=== PATIENT | female | born 1950 | race Caucasian/White ===

== ENCOUNTER → 2020-04-20 | Outpatient (CLI) | payer MEDICARE ==
[~2020-04-20] MED LIST: ALBUTEROL2.5 MG/0.1; CLARITIN5 MG; KEFLEX500 MG PO; LISINOPRIL-HCT1 EAC1 PO; MUCINEX DM TABL1 TA1; PREDNISONE 20 M20 M1; PREDNISONE 20 M20 M1 PO; SYMBICORT160 MCG/4. INH; VENTOLIN HFA 1818 GM INH; ZPAK
== END ==
LOC: M.RAD 14:45
PROVIDERS: ATTEND Family Medicine
DX: M81.0 Age-related osteoporosis without current pathological fracture (principal); Z78.0 Asymptomatic menopausal state

== ENCOUNTER 2020-11-01 11:05 | Inpatient (IN) | payer MEDICARE ==
[~2020-11-01] VITALS: Ht 162.6 cm; Wt 87.1 kg
[2020-11-01 11:12] VITALS: BP 178/86
[2020-11-01] MEDS ORDERED: ZYRTEC10 M5 PO ×2 (11:16→15:28)
[2020-11-01 11:31] LABS: ABSOLUTE BASOPHILS 0.1 thou/uL (0.0-0.2); ABSOLUTE EOSINOPHILS 0.6 thou/uL (0.0-0.7); ABSOLUTE LYMPHOCYTES 2.3 thou/uL (0.8-5.3); ABSOLUTE MONOCYTES 0.6 thou/uL (0.0-1.2); ABSOLUTE NEUTROPHILS 4.4 thou/uL (1.6-8.1); BASOPHILS 1.2 %; HEMATOCRIT 42.9 % (37.0-47.0); HEMOGLOBIN 14.4 gm/dL (12.0-15.0); LYMPHOCYTES 29.1 %; MCH 30.7 pg (26.0-34.0); MCHC 33.5 g/dL (28.0-37.0); MCV 91.7 fL (80.0-100.0); MONOCYTES 7.3 %; MPV 8.3 fl. (7.2-11.1); NUCLEATED RBCS 0 /100WBC; PLATELET COUNT* 310 thou/uL (150-400); POLYS 54.4 %; RBC 4.68 mil/uL (4.20-5.00); RDW-CV 13.5 % (10.5-14.5)
[2020-11-01 11:39] LABS: CALCIUM 8.6 mg/dL (8.5-10.1); CREATININE 0.9 mg/dL (0.6-1.3)
[2020-11-01 11:43] LABS: APTT 31.6 Seconds (25.0-31.3); PROTIME 10.3 Seconds (9.20-11.50)
[2020-11-01 11:50] LABS: BE -1.3 mmol/L (-2 to +3); PCO2 49.4 mmHg (35.0-45.0); pH 7.327 (7.340-7.450)
[2020-11-01 11:50] LABS: ALBUMIN 3.6 g/dL (3.4-5.0); TOTAL BILIRUBIN 0.4 mg/dL (<0.1-1.0); TOTAL PROTEIN 7.8 g/dL (6.4-8.2)
[2020-11-01 11:52] LABS: PO2 166.2 mmHg (75.0-100.0)
[2020-11-01 13:32] VITALS: BP 148/68
[2020-11-01 13:57] VITALS: BP 160/69
[2020-11-01] MEDS ORDERED: LISINOPRIL-HCT1 EAC1 PO (15:23)
[2020-11-01] MEDS ORDERED: VENTOLIN HFA INH8 GM INH ×2 (15:24)
[2020-11-01] MEDS ORDERED: SINGULAIR 10 MG10 MG PO (15:26)
[2020-11-01] MEDS ORDERED: SYMBICORT160 MCG/4. INH (15:26)
[2020-11-01] MEDS ORDERED: SUPER THERAVIT1 EACH PO (15:28)
[2020-11-01] MEDS ORDERED: NASACORT10.8 ML (15:29)
[2020-11-01] MEDS ORDERED: PROBIOTIC1 EAC7 PO (15:30)
[2020-11-01] MEDS ORDERED: TYLENOL325 MG PO (15:30)
[2020-11-01] MEDS ORDERED: VITAMIN D3 COM1 EACH PO (15:30)
--- NOTE | 2020-11-01 15:44 | EKG ---
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1950 Requested By: Luz Ac Order Number: [id number] MD: Sukhjinder Lyle Measurements Intervals [place] Rate: 96 P: 62 ND: 150 QRS: -70 QRSD: 153 T: 77 QT: 401 QTc: 507 Interpretive Statements Sinus rhythm RBBB and LAFB Probable left ventricular hypertrophy Compared to ECG 04/16/2012 23:18:08 Left anterior fascicular block now present Right bundle-branch block now present ST (T wave) deviation no longer present Electronically Signed On 11-01-2020 15:44:28 CDT by Sukhjinder Lyle [email or web address] <ELECTRONICALLY SIGNED> By: Sukhjinder Lyle MD, [facility] 11/01/20 1544 1135 1135 Sukhjinder Lyle MD, [facility] /EPI
[2020-11-01 20:00] VITALS: BP 149/81
[2020-11-02 00:31] VITALS: BP 154/76
[2020-11-02 04:27] LABS: HEMOGLOBIN 13.2 gm/dL (12.0-15.0); MCH 30.1 pg (26.0-34.0); MPV 8.3 fl. (7.2-11.1); RBC 4.4 mil/uL (4.20-5.00); RDW-CV 13.5 % (10.5-14.5)
[2020-11-02 04:43] LABS: CALCIUM 8.9 mg/dL (8.5-10.1); CREATININE 0.8 mg/dL (0.6-1.3); POTASSIUM 4.4 mmol/L (3.5-5.1); TOTAL BILIRUBIN 0.3 mg/dL (<0.1-1.0)
[2020-11-02 04:55] VITALS: BP 147/79
[2020-11-02 07:59] VITALS: BP 131/63
[2020-11-02 11:32] VITALS: BP 146/69
--- NOTE | 2020-11-02 15:12 | EKG ---
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1950 Requested By: Sandoval Bennett Order Number: [id number] MD: Montana Trent Measurements Intervals [place] Rate: 86 P: 24 ME: 151 QRS: -67 QRSD: 156 T: 57 QT: 407 QTc: 487 Interpretive Statements Sinus rhythm RBBB and LAFB Left ventricular hypertrophy Compared to ECG 11/01/2020 11:35:15 No significant changes Electronically Signed On 11-02-2020 15:12:32 CDT by Montana Trent [email or web address] <ELECTRONICALLY SIGNED> By: Eugenio Trent MD, [facility] 11/02/20 1512 1318 1318 Eugenio Trent MD, [facility] /EPI
[2020-11-02 20:00] VITALS: BP 139/61; BP 144/78
[2020-11-03] VITALS (7 sets, daily range): BP systolic 100–174; BP diastolic 53–88
[2020-11-03 04:19] LABS: HEMATOCRIT 39.7 % (37.0-47.0); HEMOGLOBIN 12.7 gm/dL (12.0-15.0); MCH 29.7 pg (26.0-34.0); MCV 92.8 fL (80.0-100.0); MPV 8.5 fl. (7.2-11.1); RBC 4.28 mil/uL (4.20-5.00); RDW-CV 13.9 % (10.5-14.5); WBC 18.1 thou/uL (4.0-11.0)
[2020-11-03 04:37] LABS: CREATININE 0.8 mg/dL (0.6-1.3); POTASSIUM 4.4 mmol/L (3.5-5.1)
[2020-11-04 04:00] VITALS: BP 148/83
[2020-11-04 04:39] LABS: HEMATOCRIT 38.6 % (37.0-47.0); HEMOGLOBIN 12.6 gm/dL (12.0-15.0); MCH 29.8 pg (26.0-34.0); MCHC 32.6 g/dL (28.0-37.0); MCV 91.4 fL (80.0-100.0); MPV 8.8 fl. (7.2-11.1); RBC 4.22 mil/uL (4.20-5.00); RDW-CV 14.1 % (10.5-14.5)
[2020-11-04 05:16] LABS: CALCIUM 8.6 mg/dL (8.5-10.1); CREATININE 0.9 mg/dL (0.6-1.3); MAGNESIUM 2.4 mg/dL (1.8-2.4); POTASSIUM 3.8 mmol/L (3.5-5.1)
[2020-11-04 07:39] VITALS: BP 171/85
[2020-11-04 08:19] VITALS: BP 171/85
[2020-11-04 11:40] VITALS: BP 168/68
[2020-11-04 16:19] VITALS: BP 168/52
[2020-11-04 20:00] VITALS: BP 152/47
[2020-11-05] VITALS: BP 154/70
[2020-11-05 04:05] VITALS: BP 159/54
[2020-11-05 04:22] LABS: HEMOGLOBIN 12.7 gm/dL (12.0-15.0); MCH 29.8 pg (26.0-34.0); MCHC 32.6 g/dL (28.0-37.0); MCV 91.6 fL (80.0-100.0); MPV 8.7 fl. (7.2-11.1); RBC 4.26 mil/uL (4.20-5.00); RDW-CV 13.7 % (10.5-14.5); WBC 11.7 thou/uL (4.0-11.0)
[2020-11-05 04:36] LABS: CALCIUM 9.2 mg/dL (8.5-10.1); CREATININE 0.9 mg/dL (0.6-1.3); POTASSIUM 3.8 mmol/L (3.5-5.1)
[2020-11-05 08:00] VITALS: BP 157/70
[2020-11-05 13:19] VITALS: BP 153/54
[2020-11-05 17:20] VITALS: BP 165/76
[2020-11-05 20:00] VITALS: BP 155/49
[2020-11-06] VITALS (7 sets, daily range): BP systolic 144–176; BP diastolic 61–82
[2020-11-06 04:26] LABS: CALCIUM 9.1 mg/dL (8.5-10.1); CREATININE 0.9 mg/dL (0.6-1.3); POTASSIUM 3.6 mmol/L (3.5-5.1)
[2020-11-06 04:51] LABS: HEMATOCRIT 39.9 % (37.0-47.0); HEMOGLOBIN 13.3 gm/dL (12.0-15.0); MCH 30.3 pg (26.0-34.0); MCHC 33.3 g/dL (28.0-37.0); MPV 8.9 fl. (7.2-11.1); RBC 4.38 mil/uL (4.20-5.00); RDW-CV 13.9 % (10.5-14.5); WBC 9.9 thou/uL (4.0-11.0)
[2020-11-07 03:41] VITALS: BP 157/62
[2020-11-07 08:00] VITALS: BP 139/61
[2020-11-07 12:00] VITALS: BP 149/56
[2020-11-07 14:38] LABS: HEMOGLOBIN 13.6 gm/dL (12.0-15.0); MCH 29.9 pg (26.0-34.0); MCHC 32.4 g/dL (28.0-37.0); MCV 92.1 fL (80.0-100.0); MPV 8.6 fl. (7.2-11.1); NUCLEATED RBCS 0 /100WBC; PLATELET COUNT* 322 thou/uL (150-400); RBC 4.56 mil/uL (4.20-5.00); RDW-CV 14.3 % (10.5-14.5); WBC 13.1 thou/uL (4.0-11.0)
[2020-11-07 14:55] LABS: ALBUMIN 3.3 g/dL (3.4-5.0); CALCIUM 8.3 mg/dL (8.5-10.1); POTASSIUM 3.7 mmol/L (3.5-5.1); TOTAL BILIRUBIN 0.4 mg/dL (<0.1-1.0); TOTAL PROTEIN 6.7 g/dL (6.4-8.2)
[2020-11-07 15:11] LABS: ABSOLUTE LYMPHOCYTES 1.4 thou/uL (0.8-5.3); ABSOLUTE MONOCYTES 0.1 thou/uL (0.0-1.2); ABSOLUTE NEUTROPHILS 11.5 thou/uL (1.6-8.1); PLATELET ESTIMATE ADEQUATE
[2020-11-07 16:06] VITALS: BP 166/58
[2020-11-07 16:22] LABS: PCO2 44.1 mmHg (35.0-45.0); PO2 61.3 mmHg (75.0-100.0); pH 7.472 (7.340-7.450)
--- NOTE | 2020-11-07 17:11 | 2DMMODE ---
[place] [address] 2 D/M-MODE ECHOCARDIOGRAM Name: LARA HUA Room: [address] ADM IN [facility].#: [id number] Admission: 11/01/20 Attend Phys: Bran Kurtz Discharge: Date of : 46 Date of Service: 11/07/20 1711 Report #: [id number] THIS REPORT FOR: cc: Roselia Brown,Roselia Douglas,Randy Vizcaino MD [facility] ~ APPROVED REPORT Study performed: 11/07/2020 14:25:22 EXAM: Comprehensive 2D, Doppler, and color-flow Echocardiogram Patient Location: In-Patient Room #: [facility] Status: routine BSA: 1.94 HR: 81 bpm BP: 149/56 mmHg Rhythm: NSR Other Information Study Quality: Good Indications Dyspnea 2D Dimensions IVSd: 10.22 (7-11mm) LVOT Diam: 18.81 (18-24mm) LVDd: 45.55 mm PWd: 8.30 (7-11mm) Ascending Ao: 27.91 (22-36mm) LVDs: 21.79 (25-40mm) Aortic Root: 30.42 mm Volumes Left Atrial Volume (Systole) LA ESV Index: 21.40 mL/m2 Aortic Valve AoV Peak Ricky.: 2.07 m/s AO Peak Gr.: 17.17 mmHg LVOT Max P.73 mmHg AO Mean Gr.: 9.27 mmHg LVOT Mean P.03 mmHg LVOT Max V: 1.92 m/s AO V2 VTI: 34.28 cm LVOT Mean V: 1.10 m/s JUANA (VTI): 2.52 cm2 LVOT V1 VTI: 31.11 [place] [address] 2 D/M-MODE ECHOCARDIOGRAM Name: LARA HUA Room: [address] IN ..#: [id number] Admission: 11/01/20 Attend Phys: Bran Kurtz Discharge: Date of : 46 Date of Service: 11/07/20 1711 Report #: [id number] Mitral Valve E/A Ratio: 0.83 MV Decel. Time: 202.16 ms MV E Max Ricky.: 1.01 m/s MV PHT: 58.63 ms MVA (PHT): 3.75 cm2 TDI E/Lateral E': 7.21 E/Medial E': 9.18 Medial E' Ricky.: 0.11 m/s Lateral E' Ricky.: 0.14 m/s Pulmonary Valve PV Peak Ricky.: 1.49 m/s PV Peak Gr.: 8.82 mmHg Tricuspid Valve RAP Estimate: 5.00 mmHg TR Peak Gr.: 34.90 mmHg RVSP: 39.00 mmHg PA Pressure: 39.00 mmHg Left Ventricle The left ventricle is normal size. There is normal LV segmental wall motion. There is normal left ventricular wall thickness. Left ventricular systolic function is normal. The left ventricular ejection fraction is within the normal range. LVEF is 60-65%. Grade I - abnormal relaxation pattern. Right Ventricle The right ventricle is normal size. The right ventricular systolic function is normal. Atria The left atrium size is normal. The right atrium size is normal. Aortic Valve The Aortic valve is sclerotic. No aortic regurgitation is present. There is no aortic valvular stenosis. Mitral Valve The mitral valve is normal in structure. There is no mitral valve regurgitation noted. No evidence of mitral valve stenosis. Tricuspid Valve The tricuspid valve is normal in structure. Trace tricuspid regurgitation. estimated pa pressure 45 [place] [address] 2 D/M-MODE ECHOCARDIOGRAM Name: LARA HUA Room: [address] IN [facility]#: [id number] Admission: 11/01/20 Attend Phys: Bran Kurtz Discharge: Date of : 46 Date of Service: 11/07/20 1711 Report #: [id number] Pulmonic Valve Pulmonic valve is not well visualized. There is no pulmonic valvular regurgitation. Great Vessels The aortic root is normal in size. IVC is normal in size and collapses >50% with inspiration. Pericardium There is no pericardial effusion. <Conclusion> LVEF is 60-65%. The Aortic valve is sclerotic. Trace tricuspid regurgitation. estimated pa pressure 45 mm Hg <ELECTRONICALLY SIGNED> By: Randy Oscar MD, FACC 11/07/201710 10 10 Randy Oscar MD, FACC /INF
[2020-11-07 20:00] VITALS: BP 141/66
[2020-11-08] VITALS (7 sets, daily range): BP systolic 118–153; BP diastolic 53–79
[2020-11-08 04:45] LABS: HEMATOCRIT 39.2 % (37.0-47.0); HEMOGLOBIN 12.7 gm/dL (12.0-15.0); MCH 29.7 pg (26.0-34.0); MCHC 32.5 g/dL (28.0-37.0); MCV 91.5 fL (80.0-100.0); MPV 8.6 fl. (7.2-11.1); RBC 4.28 mil/uL (4.20-5.00); RDW-CV 13.8 % (10.5-14.5); WBC 13.8 thou/uL (4.0-11.0)
[2020-11-08 05:03] LABS: CALCIUM 8.8 mg/dL (8.5-10.1); MAGNESIUM 2.4 mg/dL (1.8-2.4); POTASSIUM 3.9 mmol/L (3.5-5.1)
--- NOTE | 2020-11-08 08:43 | CON ---
[address] [address] CONSULTATION Name: LARA HUA COCO Room: [address] IN .R.#: [id number] Admission: 11/01/20 Attend Phys: Polina Glaser Discharge: Date of : 46 Report #: [id number] THIS REPORT FOR: cc: Roselia Brown Linda J. DO Pervez, Adeel MD ~ DATE OF SERVICE: 11/07/2020 REQUESTING PHYSICIAN: Consult has been requested by Dr. Sonja Martinez. INDICATION FOR CONSULTATION: COPD exacerbation and hypoxia. HISTORY OF PRESENT ILLNESS: This is a 69-year-old female with past medical history is as mentioned below, this does include a history of bronchial asthma, which she has had since her childhood. The patient also has an extensive history of smoking and appears to have subsequently developed COPD. She also gives a history which is consistent with obstructive sleep apnea, her body mass index is 34. Obstructive sleep apnea, however, has not been previously diagnosed. The patient was an active smoker. She was admitted initially on 11/01/2020, presentation was with acute shortness of breath. The patient is also reported to be significantly hypoxemic on initial presentation at one point requiring a nonrebreather mask to maintain O2 saturations. The patient is reported to have had an O2 saturation of only 80% on room air when checked at the primary care physician's office before admission. Upon admission, the patient also did have an arterial blood gas performed, which does show hypercarbia with a pCO2 of 49, this does appear to be acute as the patient's pH was decreased to 7.32. At this time, the patient was oxygenating adequately, but was on 100% nonrebreather mask. The patient initially did receive fluid resuscitation as well. She says that she has had increase in shortness of breath. She has also had a cough. She reports only having small amounts of sputum production. She states that initially she did have some tightness in her chest as well, but no chest pain. She does have some nasal discharge as well as blocked nose, but she says that she usually gets these during this time of the year when there is increasing pollen in the air. She no longer has any chest pain or tightness at this time. She denies having had fever or chills. There is a fairly significant swelling of lower extremities. She, however, does not complain of calf pain. She does report considerably disturbed sleep at night. She says that during the daytime she does take naps to cope with sleepiness during the day. The patient answers to the negative for 12 questions for review of systems [place] [address] CONSULTATION Name: LARA HUA Room: [address] IN .R.#: [id number] Admission: 11/01/20 Attend Phys: Polina Glaser Discharge: Date of : 46 Report #: [id number] PAST MEDICAL HISTORY: Bronchial asthma as a child and subsequent development of COPD secondary to cigarette smoking, hypertension, anemia during childhood requiring blood transfusion, the etiology not known at this time; seasonal allergic rhinitis and witching of eyes and arms in the past, the etiology not established. SOCIAL HISTORY: She has an extensive history of smoking. She smoked about a pack a day and smoked for several decades and she was still smoking at the time of admission. No known history of heavy alcohol use or illegal drug use. CURRENT MEDICATIONS: The list is in [facility], reviewed. HOME MEDICATIONS: List also in [facility], reviewed. ALLERGIES: There are multiple allergies listed in the records, I reviewed the entire list. I in fact doubt that the patient is allergic to all of these medications. For example, it does not appear to me that the patient has any steroid allergy. FAMILY HISTORY: There is no pertinent family history. PHYSICAL EXAMINATION: GENERAL: She is anxious. She did appear to be somewhat hard of hearing. VITAL SIGNS: Had a pulse of 81 and a blood pressure 166/58, saturating 94%, she is on 3 liters nasal cannula. Respiratory therapist reported that on just walking a few steps she desaturated into the low 80s and was short of breath and tachypneic. At rest, her respiratory rate is mildly elevated to 20. She is afebrile with a temperature of 36.8. She did have a low-grade fever earlier up to 37.7. Earlier this admission otherwise essentially she has remained afebrile. Body mass index is 34. HEENT: Head is normocephalic and atraumatic. Pupils are equal and reactive. She has a narrow airway. There is minimal amount of white material in her throat, minimal thrush is possible, but perhaps it is more likely that this is ingested food. NECK: Does not show raised JVP, asymmetry, mass or lymph nodes. CHEST: Symmetrical expansion on inspection and palpation. On auscultation, breath sounds are bilaterally equal, but decreased. I did not in fact hear any added sounds at this time. HEART: Regular. There is no murmur. ABDOMEN: Soft and nontender. EXTREMITIES: Lower extremities show 3+ edema bilaterally. There is no calf tenderness. SKIN: Moist and weepy. NEUROLOGICAL: Moves all extremities bilaterally equally and spontaneously with [address] [place] [address] CONSULTATION Name: LARA HUA COCO Room: [address] ADM IN M.R.#: [id number] Admission: 11/01/20 Attend Phys: Polina Glaser Discharge: Date of : 46 Report #: [id number] no focal deficit identified. LABORATORY DATA: I repeated a chest x-ray today compared with the previous chest x-rays performed earlier, there are no large infiltrates identified. There is mild increase in reticular markings bilaterally. This could indicate mild increase in pulmonary vascular congestion. There is a patchy radiopaque density in the right mid and lower zone, a patchy infiltrate will be possible; however, I do not see any large infiltrates. The patient's arterial blood gas consistent with acute hypoxemic and hypercarbic respiratory failure performed on admission in [facility], reviewed. The patient's lab work also in [facility], reviewed. Note that the patient's initial bicarbonate was normal at around 26-28. The patient's bicarbonate was 35 yesterday and 33 today. She has been on hydrochlorothiazide and her potassium is towards the lower end of normal range at 3.7; however, so far she has not been on loop diuretics. I just repeated labs and reviewed. There is elevation in BUN with a creatinine normal. Mild hyperglycemia is noted. D-dimer is mildly elevated to 0.73. Cultures in [facility], reviewed. ASSESSMENT AND PLAN: 1. Acute hypoxemic and hypercarbic respiratory failure. The patient's initial presentation and initial arterial blood gas is consistent with this as the pH is low on the gas, this indicates acute respiratory failure. I suspect that there is a chronic component to this as well. The patient does appear to have had bronchospasm. Also, she does appear to be fluid overloaded. These are the primary etiologies of the patient's respiratory failure. In addition, thromboembolism while less likely is not completely ruled out at this time. As the patient's bicarbonate has trended upwards during this admission, I will go ahead and obtain another arterial blood gas and see where we stand. As noted below, I do suspect that she has obstructive sleep apnea. In the long run, she will benefit from a CPAP or BiPAP while asleep. If she fails to improve or if arterial blood gas so indicates, I may, in fact, place her on BiPAP. 2. Chronic obstructive pulmonary disease exacerbation/bronchial asthma exacerbation. We will continue with Solu-Medrol; however, in fact, I would cut back on the dose. She is on Brovana as well as Xopenex. For now, continued the same and I continued budesonide as well. Down the line, I will be inclined to add ipratropium. 3. Fluid overload despite the fact that the patient had a proBNP, which was normal, initially indicating that at least on admission the right atrium was not dilated. I do feel that on my exam she is significantly fluid overloaded. I will evaluate this further by obtaining a 2D echo. Her D-dimer is mildly elevated. We will go ahead and do venous Dopplers as well. I would like to diurese her; however, it is noted that her BUN is elevated and therefore we will need to watch this closely. We may need to accept some elevation in BUN as long as the creatinine is normal. Solu-Medrol does increase the BUN and therefore, [address] [address] CONSULTATION Name: LARA HUA Room: [address] ADM IN R.#: [id number] Admission: 11/01/20 Attend Phys: Polina Glaser Discharge: Date of : 46 Report #: [id number] in fact, I am cutting it back as above. I ordered one dose of Lasix and Aldactone with potassium now. We will repeat labs and then reassess tomorrow morning. Based on the results, we will evaluate risks and benefits of doing a CT chest. In case we decide not to do a CT chest, then I would cautiously consider more diuresis tomorrow morning. Also, if there are no venous thrombi in lower extremities, then I would recommend placing compression stockings on lower extremities to help with fluid mobilization. 4. Pulmonary infiltrate. I do not see any large pulmonary infiltrates. Discussion regarding x-rays as above. A patchy infiltrate in the right mid and lower zone will be possible. The patient has been treated with azithromycin and cefdinir, I feel that this is sufficient therapy for now. I did not order more antibiotics. We will reassess tomorrow regarding whether there is an indication to extend the duration of cefdinir therapy. 5. Hypersomnia/sleep disturbances, I suspect she has obstructive sleep apnea. Discussion regarding possible use of CPAP or BiPAP is as above. 6. Possible underlying silent gastroesophageal reflux disease/GI prophylaxis, we will add Protonix. 7. Sinus tachycardia, is on diltiazem, For now we will continue. We will try to identify underlying causes and treat underlying causes as above. 8. History of hypertension. 9. Deep vein thrombosis prophylaxis, noted to be on Xarelto, low dose. To my knowledge, the patient has not been on anticoagulation previously at home. Thanks for this consultation. <ELECTRONICALLY SIGNED> By: Tony Livingston MD 11/08/20 0843 1619 [id number] emilia Huizar
[2020-11-09] VITALS: BP 141/60
[2020-11-09 04:00] VITALS: BP 140/55
[2020-11-09 04:18] LABS: HEMATOCRIT 40.8 % (37.0-47.0); HEMOGLOBIN 13.3 gm/dL (12.0-15.0); MCH 29.8 pg (26.0-34.0); MCHC 32.6 g/dL (28.0-37.0); MCV 91.3 fL (80.0-100.0); MPV 8.6 fl. (7.2-11.1); RBC 4.47 mil/uL (4.20-5.00); RDW-CV 13.9 % (10.5-14.5); WBC 18.6 thou/uL (4.0-11.0)
[2020-11-09 04:27] LABS: CALCIUM 8.6 mg/dL (8.5-10.1); CREATININE 1.1 mg/dL (0.6-1.3); POTASSIUM 4.1 mmol/L (3.5-5.1)
[2020-11-09 07:25] VITALS: BP 133/82
[2020-11-09 17:08] VITALS: BP 156/57
[2020-11-09 20:39] VITALS: BP 147/57
[2020-11-10] VITALS (8 sets, daily range): BP systolic 135–157; BP diastolic 51–60
[2020-11-10 04:39] LABS: CALCIUM 8.5 mg/dL (8.5-10.1); MAGNESIUM 2.4 mg/dL (1.8-2.4); POTASSIUM 3.7 mmol/L (3.5-5.1)
[2020-11-10] MEDS ORDERED: PREDNISONE 20 M20 MG PO (09:30)
== END 2020-11-10 16:04 | disposition home health service (06) | DRG 177 ==
LOC: M.ERS 11:05 → M.2W 12:02 → M.TBA-ER 12:02 → M.2W 13:42
PROVIDERS: Family Medicine; Internal Medicine; Internal Medicine Critical Care Medicine; Nurse Practitioner Family; ADMIT Internal Medicine; ATTEND Internal Medicine
PROC: 5A0945A Assistance with Respiratory Ventilation, 24-96 Consecutive Hours, High Flow/Velocity Cannula (ICD-10-PCS; principal; 2020-11-01)
PROC: 5A09357 Assistance with Respiratory Ventilation, Less than 24 Consecutive Hours, Continuous Positive Airway Pressure (ICD-10-PCS; principal; 2020-11-01)
PROC: 5A0935A Assistance with Respiratory Ventilation, Less than 24 Consecutive Hours, High Flow/Velocity Cannula (ICD-10-PCS; 2020-11-03)
PROC: 5A0935A Assistance with Respiratory Ventilation, Less than 24 Consecutive Hours, High Flow/Velocity Cannula (ICD-10-PCS; 2020-11-04)
PROC: 5A0935A Assistance with Respiratory Ventilation, Less than 24 Consecutive Hours, High Flow/Velocity Cannula (ICD-10-PCS; 2020-11-06)
PROC: 5A0935A Assistance with Respiratory Ventilation, Less than 24 Consecutive Hours, High Flow/Velocity Cannula (ICD-10-PCS; 2020-11-07)
PROC: 5A0935A Assistance with Respiratory Ventilation, Less than 24 Consecutive Hours, High Flow/Velocity Cannula (ICD-10-PCS; 2020-11-08)
PROC: 5A0935A Assistance with Respiratory Ventilation, Less than 24 Consecutive Hours, High Flow/Velocity Cannula (ICD-10-PCS; 2020-11-09)
DX: J15.6 Pneumonia due to other Gram-negative bacteria (principal); J96.01 Acute respiratory failure with hypoxia; J96.02 Acute respiratory failure with hypercapnia; J45.901 Unspecified asthma with (acute) exacerbation; E44.1 Mild protein-calorie malnutrition; Z20.822 Contact with and (suspected) exposure to COVID-19; J43.9 Emphysema, unspecified; G47.10 Hypersomnia, unspecified; I10 Essential (primary) hypertension; E66.9 Obesity, unspecified; I48.91 Unspecified atrial fibrillation; Z79.899 Other long term (current) drug therapy; Z88.8 Allergy status to other drugs, medicaments and biological substances; Z88.1 Allergy status to other antibiotic agents; Z87.891 Personal history of nicotine dependence; Z68.32 Body mass index [BMI] 32.0-32.9, adult

== ENCOUNTER → 2021-07-05 | Outpatient (CLI) | payer MEDICARE ==
[~2021-07-05] MED LIST changes: +NASACORT10.8 ML; +PREDNISONE 20 M20 MG PO; +PROBIOTIC1 EAC7 PO; +SINGULAIR 10 MG10 MG PO; +SUPER THERAVIT1 EACH PO; +TYLENOL325 MG PO; +VENTOLIN HFA INH8 GM INH; +VITAMIN D3 COM1 EACH PO; +ZYRTEC10 M5 PO
== END ==
LOC: M.LAB 07:44
PROVIDERS: ATTEND Orthopaedic Surgery
DX: Z01.812 Encounter for preprocedural laboratory examination (principal); Z20.822 Contact with and (suspected) exposure to COVID-19